=== PATIENT | female | born 1975 | race Native Hawaiian/Other Pacific Islander ===

== ENCOUNTER 2016-11-26 11:10 | Observation (INO) | payer MEDICAID, OTHER ==
[2016-11-26 11:15] VITALS: RESP 18; TEMP 98.5
[2016-11-26 11:21] VITALS: BMI 33.9
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
[2016-11-26 13:20] LABS: BASO % 0.6 % (0.0-2.0); EOS # 0.1 K/uL (0.0-0.7); EOS % 1.6 % (0.0-4.0); HEMATOCRIT 40.6 % (34.0-47.0); LYMPH # 1.6 K/uL (1.0-4.3); LYMPH % 26.2 % (20.0-40.0); MEAN CELL VOLUME 88.5 fl (81.0-99.0); MEAN CORPUSCULAR HGB CONC 32.7 g/dL (33.0-37.0); MEAN PLATELET VOLUME 6.5 fl (7.2-11.7); MONO # 0.3 K/uL (0.0-0.8); MONO % 4.7 % (0.0-10.0); NEUT % 66.9 % (50.0-75.0); RED CELL DISTRIBUTION WIDTH 12.9 % (11.5-14.5); WHITE BLOOD COUNT 5.9 K/uL (4.8-10.8)
[2016-11-26 13:28] LABS: URINE BILIRUBIN NEGATIVE (NEGATIVE); URINE COLOR YELLOW (YELLOW); URINE GLUCOSE (UA) NEGATIVE (Normal); URINE KETONE NEGATIVE (NEGATIVE)
[2016-11-26 13:29] LABS: URINE BLOOD TRACE (NEGATIVE); URINE LEUKOCYTE ESTERASE SMALL Leu/uL (Negative); URINE PROTEIN NEGATIVE (NEGATIVE); URINE UROBILINOGEN 0.2 mg/dL (0.2-1.0)
[2016-11-26 13:31] LABS: ALCOHOL SERUM < 10 mg/dl (0-10); BLOOD UREA NITROGEN 7 mg/dl (7-17); CALCIUM 9.5 mg/dL (8.4-10.2); CARBON DIOXIDE 26 mmol/L (22-30); CHLORIDE 103 mmol/L (98-107); GFR AFRICAN-AMERICAN > 60; GLUCOSE,RANDOM 109 mg/dL (65-105); POTASSIUM 3.8 MMOL/L (3.6-5.0); SODIUM 141 mmol/l (132-148)
[2016-11-26 13:31] LABS: RBC URINE 1 /hpf (0-3); URINE BACTERIA FEW (<OCC); WBC URINE 2 /hpf (0-5)
[2016-11-26 14:09] LABS: THYROID STIMULATING HORMONE 0.53 mIU/ML (0.46-4.68)
[2016-11-26 16:26] VITALS: BP 158/106; PULSE 98; O2SAT 99
== END 2016-11-26 16:32 | disposition home or self-care (01) ==
LOC: H.ER 11:10 → H.EROBSV 12:24
PROVIDERS: ADMIT Emergency Medicine; ATTEND Emergency Medicine
DX: F31.89 Other bipolar disorder (principal); F41.8 Other specified anxiety disorders; I10 Essential (primary) hypertension; E05.00 Thyrotoxicosis with diffuse goiter without thyrotoxic crisis or storm